=== PATIENT | male | born 1965 ===

== ENCOUNTER 2018-08-09 07:27 | Day surgery (SDC) | payer OTHER ==
[~2018-08-09] VITALS: Ht 180.3 cm; Wt 138.8 kg
[~2018-08-09 07:27] MED LIST: B Complex #11 EACH PO; DHEA PO; METFORMIN HCL1000 MG PO; Pravachol40 MG PO; SILDENAFIL20 MG PO; TESTONE CI200 MG/1 M IM; ZESTORETIC 20-251 EA PO; ZINC50 MG PO
--- NOTE | 2018-08-09 09:44 | NUR ---
08/09/18 0944 Liliana Billingsley INCENTIVE SPIROMETER TEACHING PROVIDED
== END 2018-08-09 09:41 | disposition home or self-care (01) ==
LOC: ORSCSDS 07:27
PROVIDERS: Internal Medicine Gastroenterology
PROC: 0DJD8ZZ Inspection of Lower Intestinal Tract, Via Natural or Artificial Opening Endoscopic (ICD-10-PCS; principal; 2018-08-09 08:45)
DX: Z12.11 Encounter for screening for malignant neoplasm of colon (principal); G47.33 Obstructive sleep apnea (adult) (pediatric); I10 Essential (primary) hypertension; J45.909 Unspecified asthma, uncomplicated; Z79.899 Other long term (current) drug therapy; E11.9 Type 2 diabetes mellitus without complications; E66.01 Morbid (severe) obesity due to excess calories; Z68.41 Body mass index [BMI] 40.0-44.9, adult
CPT/HCPCS: 82947; J0330; J0461; J1980; J2250; J2405; J7120